=== PATIENT | female | born 1935 | race Two or more races ===

== ENCOUNTER 2017-05-25 06:56 | Emergency (ER) | payer OTHER ==
[~2017-05-25] VITALS: Ht 149.9 cm; Wt 57.6 kg
[2017-05-25 07:54] VITALS: BP 125/82
[2017-05-25] MEDS ORDERED: IPRATROPIUM BROM 0.5 MG/2.5ML INH SOL NEB ONE (08:15)
[2017-05-25] MEDS ORDERED: methylPREDNISolone SOD SUCC 125 MG/2 ML VL IV ONE (08:15)
[2017-05-25] MEDS ORDERED: LEVOFLOXACIN 500MG 100 ML IV ONE (08:15)
[2017-05-25] MEDS ORDERED: ALBUTEROL SULF 2.5 MG/0.5ML(0.5%) NEB SOLN NEB ONE (08:15)
[2017-05-25 08:31] LABS: Urine Bacteria MOD /hpf (None Seen); Urine Blood Negative /uL (Negative); Urine Specific Gravity 1.006 (1.001-1.035); Urine WBC <1 /hpf (0 - 5)
[2017-05-25 08:32] LABS: Basophils # (auto) 0 uL; Basophils % (auto) 0.7 % (0.0-2.0); Eosinophils # (auto) 0 uL; Eosinophils % (auto) 0.2 % (0.0-7.0); Lymphocytes # (auto) 1.4 uL; Lymphocytes % (auto) 26.5 % (10.0-50.0); Mean Corpuscular Hemoglobin 30.7 pg (28.0-32.0); Mean Corpuscular Hgb Conc. 33.9 g/dL (32.0-36.0); Mean Corpuscular Volume 90.5 fL (80.0-100.0); Monocytes # (auto) 0.7 uL; Monocytes % (auto) 12.3 % (0.0-12.0); Neutrophils # (auto) 3.3 uL; Neutrophils % (auto) 60.3 % (37.0-80.0); Nucleated Red Blood Cells % 0.1 %; Platelet Count (auto) 259 10^3/uL (140-450); Red Blood Cells 5.53 10^6/uL (4.0-5.20); Red Cell Distribution Width 13.2 % (11.8-14.3); White Blood Cell 5.4 10^3/uL (4.4-10.8)
[2017-05-25] MEDS ORDERED: ONDANSETRON HCL 4 MG/2 ML VIAL IV ONE (08:45)
[2017-05-25 08:54] LABS: Alanine Aminotransferase 28 U/L (13-56); Albumin 4.1 g/dL (3.4-5.0); Alkaline Phosphatase 69 U/L (45-117); Anion Gap 9 (5-15); Aspartate Aminotransferase 24 U/L (15-37); Bilirubin, Total 0.4 mg/dL (0.2-1.0); Blood Urea Nitrogen 10 mg/dL (7-18); Carbon Dioxide 28 mmol/L (21-32); Chloride 100 mmol/L (98-107); GFR African American 93 mL/min; GFR Non-African American 77 mL/min; Glucose 106 mg/dL (74-106); Magnesium 2.9 mg/dL (1.6-2.6); Potassium 3.9 mmol/L (3.5-5.1); Sodium 137 mmol/L (136-145); Total Protein 8.6 g/dL (6.4-8.2)
[2017-05-25] MEDS ORDERED: HYDROcodone-ACET 5/325MG TAB PO ONE (09:30)
== END 2017-05-25 13:22 | disposition home or self-care (01) ==
LOC: ER 06:56 → EDBD 06:56 → ER 13:22
DX: J40 Bronchitis, not specified as acute or chronic (principal); K21.9 Gastro-esophageal reflux disease without esophagitis; E07.89 Other specified disorders of thyroid
CPT/HCPCS: 36415; 71046; 80053; 81001; 83735; 84484; 85025; 93005; 94640; 94761; 96365; 96375; 99285; J1956; J2405; J2930